=== PATIENT | female | born 1995 | race Caucasian/White ===

== ENCOUNTER 2024-11-01 10:58 | Outpatient (CLI) | payer BC, SELFPAY ==
--- NOTE | ~2024-11-01 | US_ITS ---
Pelvic ultrasound. Clinical History: Cyclical abdominal pain Technique: Realtime transvaginal scanning of the pelvis was performed. Color flow Doppler and Doppler spectral analysis were performed. Findings: The uterus is anteverted. The endometrial stripe has a thickness of 11 mm. No focal mass i s identified. The right ovary is not visualized. No significant right ovarian or adnexal mass is seen. The left ovary measures 2.7 x 3.0 x 2.3 cm. Simple left ovarian cyst measures 1.8 cm. There is no evidence of free fluid in the cul de sac. Impression: No significant abnormality seen. Reviewed, dictated and finalized at [facility]. Impression: No significant abnormality seen.
== END 2024-11-01 10:59 | disposition home or self-care (01) ==
LOC: GOSHIMG 10:58
PROVIDERS: PCP Obstetrics & Gynecology; Visit Provider Student in an Organized Health Care Education/Training Program
DX: N83.209 Unspecified ovarian cyst, unspecified side (principal)
CPT/HCPCS: 76830